=== PATIENT | female | born 1990 | race Caucasian/White ===

== ENCOUNTER → 2017-12-16 | Outpatient (CLI) | payer MEDICAID ==
--- NOTE | 2017-12-16 17:14 | RADIOLOGY REPORT (SQ) ---
EXAM DESCRIPTION: U/S OB 14+ TRNABD 1GES W/O DOP COMPLETED DATE/TIME: 12/16/2017 5:04 pm REASON FOR STUDY: Z34.82 ENCOUNTER FOR SUPRVSN OF NORMAL , SECOND TRIMESTER Z34.82 ENCOUNT ER FOR SUPRVSN OF NORMAL , SECOND TRI COMPARISON: None. TECHNIQUE: Static and Dynamic grayscale imaging performed of gravid uterus using transabdominal appr oach. Additional selected color Doppler and spectral images recorded. All stored on PACS. LIMITATIONS: Limited visualization of the anatomy due to early age and movement. FINDINGS: EGA: 14 week 6 day. JR: 06/10/2018. LONNY: Adequate amount. PLACENTA: Fundal. GRADE: I PRESENTATION: Variable. ANATOMY: HEART RATE: 155 beats per minute. FOUR CHAMBER HEART: Poorly visualized. THREE VESSEL CORD: Poorly visualized. CORD INSERTION: Poorly visualized. KIDNEYS AND BLADDER: Poorly visualized. STOMACH: Visualized. Appears normal. SPINE: Poorly visualized. BRAIN AND LATERAL VENTRICLES: Poorly visualized. OTHER: No other significant finding. MATERNAL ADNEXA: Maternal ovaries not visualized. CERVICAL LENGTH: 4.1 cm. Closed. OTHER: No other significant finding. IMPRESSION: LIVING INTRAUTERINE . ESTIMATED GESTATIONAL AGE 14 WEEK 6 DAY. LIMITED VISUALIZATION OF THE ANATOMY DUE TO THE EARLY AGE AND MOVEMENT. Trimester of : Second trimester - 13 weeks 1 day to 27 weeks 6 days. TECHNICAL DOCUMENTATION: JOB ID: [id number] [employer]- All Rights Reserved
== END ==
LOC: RAD 16:12
PROVIDERS: ATTEND Nurse Practitioner Women's Health
DX: Z34.82 Encounter for supervision of other normal pregnancy, second trimester (principal)
CPT/HCPCS: 76805

== ENCOUNTER 2018-05-21 15:22 | Inpatient (IN) | payer MEDICAID ==
[2018-05-21 16:36] LABS: AMORPHOUS SEDIMENT,URINE TRACE /HPF; APPEARANCE,URINE SLIGHTLY-CLOUDY; BILIRUBIN,URINE NEGATIVE (NEGATIVE); COLOR,URINE YELLOW; GLUCOSE, URINE NEGATIVE (NEGATIVE); KETONES,URINE NEGATIVE (NEGATIVE); LEUKOCYTE ESTERASE,URINE LARGE (NEGATIVE); NITRITE,URINE NEGATIVE (NEGATIVE); PROTEIN,URINE NEGATIVE (NEGATIVE); URINE SPECIFIC GRAVITY 1.004; UROBILINOGEN,URINE NEGATIVE mg/dL (<2.0)
[2018-05-21] MEDS ORDERED: RINGERS SOLUTION,LACTATED 1,000 ML IV ONE (16:39)
[2018-05-21] MEDS ORDERED: PENICILLIN G POTASSIUM 5,000,000 UNIT in DEXTROSE 5%-WATER 100 ML IV ONE (16:39)
[2018-05-21] MEDS ORDERED: RINGERS SOLUTION,LACTATED 1,000 ML IV PRN (16:39)
[2018-05-21 16:56] LABS: URINE AMPHETAMINES SCREEN NEGATIVE; URINE BARBITURATES SCREEN NEGATIVE; URINE BENZODIAZEPINES SCREEN NEGATIVE; URINE COCAINE SCREEN NEGATIVE; URINE METHADONE SCREEN NEGATIVE; URINE PHENCYCLIDINE SCREEN NEGATIVE
[2018-05-21 17:05] LABS: URINE MARIJUANA (THC) SCREEN UNCONFIRMED POSITIVE
[2018-05-21] MEDS ORDERED: NORMAL SALINE 250 ML IV PRN (17:32)
[2018-05-21] MEDS ORDERED: PENICILLIN G-K 5 MILLION UNIT VIAL ONE (17:51)
[2018-05-21 18:10] LABS: ABSOLUTE BASOPHILS # (AUTO) 0.2 10^3/uL (0.0-0.2); ABSOLUTE EOSINOPHILS # (AUTO) 0.1 10^3/uL (0.0-0.6); ABSOLUTE LYMPHOCYTES (AUTO) 3.3 10^3/uL (0.5-4.7); ABSOLUTE MONOCYTES (AUTO) 0.9 10^3/uL (0.1-1.4); ABSOLUTE NEUT (AUTO) 11.6 10^3/uL (1.7-8.2); BASOPHILS % (AUTO) 1.3 % (0-2); EOSINOPHILS % (AUTO) 0.7 % (0-6); HEMATOCRIT 35.2 % (36.0-47.0); LYMPHOCYTES % (AUTO) 20.3 % (13-45); MEAN CORPUSCULAR HEMOGLOBIN 28.3 pg (27.0-33.4); MEAN CORPUSCULAR VOLUME 83 fl (80-97); MONOCYTES % (AUTO) 5.8 % (3-13); PLATELET COUNT 294 10^3/uL (150-450); RED BLOOD COUNT 4.23 10^6/uL (3.72-5.28); RED CELL DISTRIBUTION WIDTH 13.8 % (11.5-14.0); SEGMENTED NEUTROPHILS % (AUTO) 71.9 % (42-78); TOTAL CELLS COUNTED % (AUTO) 100 %; WHITE BLOOD COUNT 16.2 10^3/uL (4.0-10.5)
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
--- NOTE | 2018-05-21 20:38 | L&D Progress Notes ---
PROGRESS NOTES Datetime Report Generated by HERBERTH: 05/21/2018 20:38 PROGRESS NOTE Impression: Reassuring Heart Rate Plan: Continue Present Management Informed Consent Obtained: Vaginal Delivery; Risks, Benefits and Alternatives Discussed Informed Consent Obtained: Vaginal Delivery; Vaginal After ; Risks, Benefits and Alternatives Discussed Informed Consent Obtained- Other: Against Medical Advice Comment: Patient is now desiring to Leave AMA and labor at home and then her plan is to go to [facility] since they let her try to TOLAC there the last time. She was counseled on the risk of laboring at home with TOLAC - uterine rupture may initially go unnoticed and uterine rupture outside of the hospital carries an almost 100% chance of as well as a 50% maternal mortality (). She was counseled that laboring at home is absolutely NOT recommended. She is aware of risk of Maternal/ , uterine rupture, abruption, hysterectomy, multiple unit transfusion/DIC/Intubation/ICU admission, if baby survives after uterine rupture then risk of neurodevelopmental delay/mental retardation/cerebal palsy. JAMES and TiffanyK - were RN in room to witness patient refusal of continued care including section and refusal to stay in hospital. She is signing AMA form for desire to leave against medical advice in early labor and needing a repeat section. VAGINAL EXAM Dilatation: 4 Effacement: 90 Station: -1 Contractions: q 3 MEMBRANES Membranes: Intact Membranes: Intact Amniotic Fluid Color: Clear FETUS A FHR - Baseline: 125 Monitoring: External US Variability: Moderate 6-25bpm Accelerations: 15X15 Decelerations: None FHR Category: Category I Presentation: Vertex SIGNATURE SIGNATURE: [id number] SIGNATURE: [id number] Signature: with User ID: [email or web address]
--- NOTE | 2018-05-21 20:55 | PDOC DISCHARGE SUMMARY ---
General - Admit/Disc Date/PCP Admission Date/Primary Care Provider: 05/21/18 17:47 RUBEN VILA MD Discharge Date: 05/21/18 - Discharge Diagnosis (1) Active labor at term Is this a current diagnosis for this admission?: Yes Summary: patient admitted in early labor with h/o prior to sections and refuses repeat section. Please see H&P and progress note. She is now leaving AMA to labor at home despite recommendations to not do so. (2) H/O section complicating Is this a current diagnosis for this admission?: Yes Summary: patient admitted in early labor with h/o prior to sections and refuses repeat section - Additional Information Resuscitation Status: Full Code Discharge Diet: As Tolerated Discharge Activity: Bedrest Home Medications: No Home Medications 1 12/08/11 Cyclobenzaprine HCl [Flexeril 10 Mg Tablet] 10 mg PO TID #30 tablet 05/21/13 Ibuprofen [Motrin 800 mg Tablet] 800 mg PO TID #30 tablet 05/21/13 Ibuprofen [Motrin 800 Mg Tablet] 800 mg PO TID PRN #30 tablet 05/09/14 Methocarbamol [Robaxin 500 Mg Tablet] 500 mg PO QID PRN #60 tablet 05/09/14 Tramadol HCl [Ultram 50 mg Tablet] 50 mg PO ASDIR PRN #20 tablet 05/09/14 History of Present Illness Patient complains of: uterine contractions History of Present Illness: DOROTHY MARTIN is a 27 year old female at 37+3ega presented for regular uterine ctx and noted to have cvx 2cm and then within 1 hour 3-4cm/90/-1 then 2 hours later 3/100/0 station. She has a history of 2 prior c/s in 2009 and then failed TOLAC with arrest of dilation at 4cm 06/01/2017. Patient is not a candidate for TOLAC due to history of 2 prior sections. She would not be a candidate for TOLAC even if she had only once since it was less than a year ago. She persists in her refusal of section. Hospital Course Hospital Course: 27 year old female at 37+3ega presented for regular uterine ctx and noted to have cvx 2cm and then within 1 hour 3-4cm/90/-1 then 2 hours later 3/ 100/0 station. She was counseled and recommended to have repeat C/S. She refused despite counseling regarding the risks. Everyone was notified as per H& P. Pt now feels that she is not making progress and desires to leave AMA. Pt extensively counseled against this as well and patient was counseled about the significant risk of unmonitored TOLAC. 2 nurses were in the room as well to witness patient refusal of care. RN press hand supervisor will be notified again. Physical Exam - Physical Exam Vital Signs: Intake & Output 05/20/18 05/21/18 05/22/18 06:59 06:59 06:59 Weight 80.1 kg General appearance: PRESENT: no acute distress, well-developed, well-nourished Head exam: PRESENT: atraumatic, normocephalic Respiratory exam: PRESENT: clear to auscultation divya, symmetrical. ABSENT: tachypnea GI/Abdominal exam: PRESENT: normal bowel sounds, soft. ABSENT: distended, guarding, mass, organolmegaly, rebound, tenderness Rectal exam: PRESENT: deferred Extremities exam: PRESENT: full ROM. ABSENT: calf tenderness, clubbing, pedal edema Neurological exam: PRESENT: alert, awake, oriented to person, oriented to place , oriented to time, oriented to situation, CN II-XII grossly intact. ABSENT: motor sensory deficit Psychiatric exam: PRESENT: appropriate affect, normal mood. ABSENT: homicidal ideation, suicidal ideation Skin exam: PRESENT: dry, intact, warm. ABSENT: cyanosis, rash Result Laboratory Results: 05/21/18 17:55 05/21/18 05/21/18 05/21/18 15:39 17:55 17:55 WBC 16.2 H RBC 4.23 Hgb 12.0 Hct 35.2 L MCV 83 MCH 28.3 MCHC 34.0 RDW 13.8 Plt Count 294 Seg Neutrophils % 71.9 Lymphocytes % 20.3 Monocytes % 5.8 Eosinophils % 0.7 Basophils % 1.3 Absolute Neutrophils 11.6 H Absolute Lymphocytes 3.3 Absolute Monocytes 0.9 Absolute Eosinophils 0.1 Absolute Basophils 0.2 Urine Color YELLOW Urine Appearance SLIGHTLY-CLOUDY Urine pH 7.0 Ur Specific [place] 1.004 Urine Protein NEGATIVE Urine Glucose (UA) NEGATIVE Urine Ketones NEGATIVE Urine Blood SMALL H Urine Nitrite NEGATIVE Ur Leukocyte Esterase LARGE H Urine WBC (Auto) 39 Urine RBC (Auto) 5 Blood Type A POSITIVE Antibody Screen NEGATIVE Plan Discharge Plan: Pt leaving AMA Time Spent: Greater than 30 Minutes
== END 2018-05-21 20:55 | disposition left against medical advice (07) | DRG 781 ==
LOC: LC 15:22 → LR 17:47
PROVIDERS: ADMIT Student in an Organized Health Care Education/Training Program; ATTEND Student in an Organized Health Care Education/Training Program
DX: O34.211 Maternal care for low transverse scar from previous cesarean delivery (principal); O99.323 Drug use complicating pregnancy, third trimester; N85.8 Other specified noninflammatory disorders of uterus; O99.333 Smoking (tobacco) complicating pregnancy, third trimester; F17.210 Nicotine dependence, cigarettes, uncomplicated; F12.90 Cannabis use, unspecified, uncomplicated; Z3A.37 37 weeks gestation of pregnancy; Z53.29 Procedure and treatment not carried out because of patient's decision for other reasons
CPT/HCPCS: 36415; 59025; 80307; 81001; 85025; 86592; 86850; 86900; 86901; 86920; 87081; J2540

== ENCOUNTER 2018-05-22 00:07 | Inpatient (IN) | payer MEDICAID ==
[2018-05-22] MEDS ORDERED: CITRIC ACID/SODIUM CITRATE ORAL SOLN 15 ML UDCUP ONE (00:22)
[2018-05-22] MEDS ORDERED: CEFAZOLIN 1 GM/D5W RTU 2 GM/100 ML RTUPB IV ONE (00:22)
[2018-05-22] MEDS ORDERED: RINGERS SOLUTION,LACTATED 1,000 ML IV ONE (00:25)
[2018-05-22] MEDS ORDERED: RINGERS SOLUTION,LACTATED 1,000 ML IV PRN (00:25)
[2018-05-22] MEDS ORDERED: CEFAZOLIN 2 GM/D5W RTU 2 GM/50 ML RTUPB IV ONE (00:25)
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
[2018-05-22] MEDS ORDERED: BUPIVACAINE HCL/DEX-WATER/PF 15 MG/2 ML AMPULE ONE (00:55)
[2018-05-22 01:05] LABS: HEMATOCRIT 35.4 % (36.0-47.0); HEMOGLOBIN 12.1 g/dL (12.0-15.5); MEAN CORPUSCULAR HEMOGLOBIN 28.3 pg (27.0-33.4); MEAN CORPUSCULAR HGB CONC 34.1 g/dL (32.0-36.0); MEAN CORPUSCULAR VOLUME 83 fl (80-97); PLATELET COUNT 288 10^3/uL (150-450); RED BLOOD COUNT 4.26 10^6/uL (3.72-5.28); RED CELL DISTRIBUTION WIDTH 13.8 % (11.5-14.0); WHITE BLOOD COUNT 18.1 10^3/uL (4.0-10.5)
[2018-05-22] MEDS ORDERED: PROMETHAZINE HCL INJ 25 MG/1 ML VIAL IV PRN ×3 (01:24→02:12)
[2018-05-22] MEDS ORDERED: MORPHINE SULFATE 10 MG/ML INJ IV PRN (01:24)
[2018-05-22] MEDS ORDERED: MEPERIDINE HCL/PF INJ 25 MG/1 ML DISP.SYRIN IV PRN (01:24)
[2018-05-22] MEDS ORDERED: DIPHENHYDRAMINE HCL 50 MG/ML VIAL IV PRN (01:24)
[2018-05-22] MEDS ORDERED: FENTANYL CITRATE INJ/PF 100 MCG/2 ML AMPUL IV PRN ×3 (01:24)
[2018-05-22] MEDS ORDERED: PROMETHAZINE HCL INJ 25 MG/1 ML VIAL ONE (01:44)
[2018-05-22] MEDS ORDERED: SIMETHICONE 80 MG TAB.CHEW PO PRN (02:12)
[2018-05-22] MEDS ORDERED: OXYTOCIN/NORMAL SALINE 20 UNIT/1,000 ML RTUINJ IV PRN (02:12)
[2018-05-22] MEDS ORDERED: OXYCODONE-ACETAMINOPHEN 5-325 MG TABLET PO PRN ×2 (02:12)
[2018-05-22] MEDS ORDERED: DIPH/PERTUSS(ACELL)/TETANUS VAC/PF 0.5 ML SYR (>=10YO) IM PRN (02:12)
[2018-05-22] MEDS ORDERED: MEASLES,MUMPS&RUBELLA VACC/PF 0.5 ML VIAL SUBCUT PRN (02:12)
[2018-05-22] MEDS ORDERED: ACETAMINOPHEN 100 MG/10 ML RTUPB IV PRN (02:12)
[2018-05-22] MEDS ORDERED: HYDROMORPHONE HCL INJ/PF 2 MG/ML AMPULE IV PRN (02:12)
[2018-05-22] MEDS ORDERED: ACETAMINOPHEN 325 MG TABLET PO PRN (02:12)
[2018-05-22] MEDS ORDERED: KETOROLAC TROMETHAMINE INJ/PF 30 MG/1 ML SDV IV SCH (02:15)
--- NOTE | 2018-05-22 02:24 | Operative Report ---
Operative Report DATE OF SURGERY: 05/22/18 PREOPERATIVE DIAGNOSIS: H/o section x 2, , 37+4ega, Self mutilating behavior, Active labor, non complaince with medical recommendations POSTOPERATIVE DIAGNOSIS: DEVYN - delivered, True knot in cord, Triple right leg cord OPERATION: Repeat Section SURGEON: RUBEN VILA ANESTHESIA: Spinal TISSUE REMOVED OR ALTERED: placenta and cord sent to pathology COMPLICATIONS: None ESTIMATED BLOOD LOSS: 954ml INTRAOPERATIVE FINDINGS: normal bilateral tubes and ovaries, normal uterus except for extensive adhesions from anterior uterine body to anterior abdominal wall and adhesions of bladder to anterior abdominal wall and uterine scar. very thin lower uterine segment entered with hemostat. Infant with triple leg cord and then also note true knot in cord. VFI delivered at 0129. Apgars 8/9. weight 5#7oz. IVF 1400ml, UOP 50ml PROCEDURE: Anesthesia provider: [Ruth Sawant MD, Jessica Gale CRNA] Urine output: [50ml] IV fluids: [1400ml] Indications: [27yo at 37+4ega presented in labor and section was recommended on 05/21 then patient left AMA. She returned on 05/22 again in labor and Repeat C/S was recommended. She at this time agreed to proceed. The Risks/benefits/alternatives were discussed and she desired to proceed with Repeat C/S. See H&P and other notes. ] Procedure: The patient was taken to the operating room where spinal anesthesia was obtained and found to be adequate. She was then prepped and draped in the normal sterile fashion and placed in the dorsal supine position with a leftward tilt. A Pfannenstiel skin incision was then made and carried through to the underlying layers of the fascia with the scalpel. The fascia was incised in the midline and the incision extended laterally with the Cabrera scissors. The superior aspect of the fascial incision was then grasped with Ronan clamps elevated and the underlying rectus muscles dissected off [sharply]. Attention was then turned to the inferior aspect of the fascial incision which in a similar fashion was grasped, tented up with Ronan clamps, and the rectus muscles dissected off [sharply]. The rectus muscles were then in the midline and the peritoneum at the amount identified and entered [sharply]. The peritoneal incision was then extended superiorly and inferiorly with good visualization of the bladder after careful dissection of adhesions of anterior uterine body to anterior abdominal wall. The bladder blade was inserted and the vesicouterine peritoneum identified grasped with Nepalese pickups and entered sharply with the Metzenbaum scissors and additional adhesions of bladder to anterior abdominal wall and lower uterine segment were taken down sharply. This incision was then extended laterally with the Metzenbaum scissors and a bladder flap created digitally. The bladder blade was then reinserted and the lower uterine segment kicked in a transverse fashion with the scalpel then entered with hemostat since it was very thin. The uterine incision was then extended bluntly. The bladder blade was removed and the infant's head was delivered from cephalic presentation atraumatically. The nose and mouth were suctioned and the cord doubly clamped and cut. And the was handed off to waiting pediatricians. The placenta was then delivered spontaneously and the uterus exteriorized and cleared of all clots and debris. The uterine incision was then repaired with 1- 0 Vicryl in a running locked fashion. A second layer of the same suture was used to obtain hemostasis via imbrication of the initial layer. The bladder flap was then repaired with 3-0 chromic in a running fashion. The uterus was returned to the patient's abdomen and Interceed was placed overlying the uterine incision to prevent adhesions. The gutters were cleared of all clots and debris. All operative sites were noted to be hemostatic. The fascia was reapproximated with 0 Vicryl in a running fashion from each lateral edge to the midline. The skin was closed with 3-0 Monocryl in a running subcuticular fashion with overlying Dermabond for additional dressing as well as wound closure. The patient tolerated the procedure well. Sponge lap needle and instrument counts are correct times 2. 2 g of Ancef were given prior to skin incision. The patient was taken to the recovery area awake and in stable condition.
--- NOTE | 2018-05-22 02:24 | Brief Operative Note ---
BRIEF OPERATIVE REPORT DATE OF SURGERY: 05/22/18 TIME OF SURGERY: 01:30 PREOPERATIVE DIAGNOSIS: H/o section x 2, , 37+4ega, Self mutilating behavior, Active labor, non complaince with medical recommendations POSTOPERATIVE DIAGNOSIS: DEVYN - delivered, True knot in cord, Triple right leg cord SURGEON: RUBEN VILA FINDINGS: normal bilateral tubes and ovaries, normal uterus except for extensive adhesions from anterior uterine body to anterior abdominal wall and adhesions of bladder to anterior abdominal wall and uterine scar. very thin lower uterine segment entered with hemostat. with triple leg cord and then also note true knot in cord. VFI delivered at 0129. Apgars 8/9. weight 5 #7oz. IVF 1400ml, UOP 50ml COMPLICATIONS: None ESTIMATED BLOOD LOSS: 954ml TISSUE REMOVED OR ALTERED: placenta and cord sent to pathology TECHNICAL PROCEDURE: Repeat Section
[2018-05-22] MEDS ORDERED: OXYTOCIN/NORMAL SALINE 20 UNIT/1,000 ML RTUINJ ONE (03:00)
[2018-05-22] MEDS ORDERED: KETOROLAC TROMETHAMINE INJ/PF 30 MG/1 ML SDV ONE (03:27)
[2018-05-22] MEDS ORDERED: ONDANSETRON HCL INJ/PF 4 MG/2 ML SDV IV PRN (07:08)
[2018-05-22] MEDS: PRENATAL VITAMIN W DHA CAPSULE PO SCH (09:30)
[2018-05-22] MEDS ORDERED: DOCUSATE SODIUM 100 MG CAPSULE PO SCH (10:00)
[2018-05-22] MEDS: KETOROLAC TROMETHAMINE INJ/PF 30 MG/1 ML SDV IV SCH ×2 (11:42→19:43)
[2018-05-22] MEDS: ACETAMINOPHEN WITH CODEINE #3 TABLET PO PRN ×3 (13:12→22:05)
--- NOTE | 2018-05-22 14:12 | Delivery Summary ---
Del Sum A-C Datetime Report Generated by CPN: 05/22/2018 14:11 DELIVERY PERSONNEL DELIVERY PERSONNEL: [id number] Delivery Doctor:: Emilie Morales MD Anesthesiologist:: Deedee Mukherjee MD DENTAL SALES REPRESENTATIVE:: Lauren Gale DENTAL SALES REPRESENTATIVE Labor and Delivery Nurse:: Jenna Velázquez RN Sports Medicine Specialist:: Jenna Velázquez RN Neonatal Nurse Practitioner:: MALICK Aguilera Nursery Nurse:: Mariana Ritter RN Nursery Nurse:: Julius Fonseca RN Systems Consultant/PLACEMENT MANAGER: [employer] Consultant/PLACEMENT MANAGER: Genesis Paganr, [employer] MATERNAL INFORMATION Delivery Anesthesia: Spinal Medications After Delivery: Pitocin Bolus-Please Comment; Pitocin Drip 20 Units/1000ml NSS Meds After Delivery Comment: NS with Pitocin 20 units/liter IVF bolus per protocol x2 liters Maternal Complications: None LABOR SUMMARY EDC: 06/08/2018 00:00 No. Babies in Womb: 1 Attempted: No Labor Anesthesia: None LABOR INFORMATION Reason for Induction: Not Applicable Onset of Labor: 05/21/2018 00:00 Oxytocin: N/A Group B Beta Strep: unknown Antibiotics # of Doses: 1 Antibiotics Time of Last Dose: 1824 Name of Antibiotic Given: PCN 5 million units IV Steroids Given: None Reason Steroids Not Administered: Not Applicable MEMBRANES Membranes Rupture Method: Artificial Rupture of Membranes: 05/22/2018 01:29 Length of Rupture (hr): 0.00 Amniotic Fluid Color: Clear Amniotic Fluid Amount: Moderate Amniotic Fluid Odor: Normal STAGES OF LABOR Stage 3 hr: 0 Stage 3 min: 1 Total Time in Labor hr: 25 Total Time in Labor min: 30 VAGINAL DELIVERY Episiotomy: None Laceration #1: None Laceration Extension #1: N/A Sponge Count Correct: N/A Sharps Count Correct: N/A CSECTION DELIVERY Primary Indication: > 2 Previous C-Sections CSection Urgency: Non-Scheduled CSection Incidence: Repeat Labor: Labor Elective: Nonelective CSection Incision: Lower Uterine Transverse BABY A INFORMATION Delivery Date/Time: 05/22/2018 01:29 Method of Delivery: Born in Route : No : N/A Forceps: N/A Vacuum Extraction: N/A Shoulder Dystocia : No PRESENTATION/POSITION BABY A Presentation: Cephalic Cephalic Presentation: Vertex Vertex Position: Left Occipital Anterior Breech Presentation: N/A PLACENTA INFORMATION BABY A Placenta Delivery Time : 05/22/2018 01:30 Placenta Method of Delivery: Manual Removal Placenta Status: Delivered SCORES BABY A Heart Rate 1 min: >100 bpm Resp Effort 1 min: Good Cry Reflex Irritability 1 min: Cough or Sneeze or Pulls Away Muscle Tone 1 min: Active Motion Color 1 min: Blue/Pale SCORE 1 MIN: 8 Heart Rate 5 min: >100 bpm Resp Effort 5 min: Good Cry Reflex Irritability 5 min: Cough or Sneeze or Pulls Away Muscle Tone 5 min: Active Motion Color 5 min: Body [facility], Extremities Blue SCORE 5 MIN: 9 INFORMATION BABY A Gestational Age at Delivery: 37.4 Gestational Status: Early Term- 37- 38.6 Weeks Infant Outcome : Liveborn Infant Condition : Stable Sex: Female WEIGHT/LENGTH BABY A Infant Birthweight (gm): 2470 Infant Weight (lb): 5 Infant Weight (oz): 7 Infant Length (in): 18.00 Length (cm): 45.72 CORD INFORMATION BABY A No. Cord Vessels: 3 Nuchal Cord : nuchal cord x 3 around leg True Knot: 1 Cord Blood Taken: Yes-For Storage (Mom's Blood type +) Suction: Mouth; Nose ASSESSMENT BABY A Infant Complications: None Physical Findings at Delivery: Within Normal Limits Respirations: Grunting Skin to Skin: No Mold Stripper/ALS Called : No Care By: HUGO Ritter and HUGO Fonseca Transferred To: [facility] BABY B INFORMATION : N/A
[2018-05-23] MEDS: IBUPROFEN 800 MG TABLET PO SCH ×3 (00:14→12:20)
[2018-05-23] MEDS: ACETAMINOPHEN WITH CODEINE #3 TABLET PO PRN ×3 (01:55→15:08)
[2018-05-23 06:18] LABS: HEMATOCRIT 32.2 % (36.0-47.0); HEMOGLOBIN 10.9 g/dL (12.0-15.5); MEAN CORPUSCULAR HEMOGLOBIN 28.5 pg (27.0-33.4); MEAN CORPUSCULAR HGB CONC 33.9 g/dL (32.0-36.0); MEAN CORPUSCULAR VOLUME 84 fl (80-97); PLATELET COUNT 263 10^3/uL (150-450); RED BLOOD COUNT 3.83 10^6/uL (3.72-5.28); RED CELL DISTRIBUTION WIDTH 14.1 % (11.5-14.0); WHITE BLOOD COUNT 13.9 10^3/uL (4.0-10.5)
--- NOTE | 2018-05-23 08:24 | PDOC PROGRESS REPORT ---
Subjective-OB Progress Note for:: 05/23/18 Subjective: Doing well, sleeping in room, still having pain, better with meds, eating, voiding, ambulating Physical Exam (OB) Vital Signs: Temp Pulse Resp BP Pulse Ox 97.5 F 72 20 117/70 100 05/23/18 04:10 05/23/18 04:10 05/23/18 04:10 05/23/18 04:10 05/23/18 04:10 Intake & Output 05/22/18 05/23/18 05/24/18 06:59 06:59 06:59 Intake Total 120 2325 Output Total 1240 Balance 120 1085 Weight 76.8 kg - PIH/Pre-Eclampsia DTR's: 1 + Clonus: Negative Headache: Absent Epigastric Pain: No Visual Changes: No - Dressing Removed: No Incision: Dressing, Well Approximated Closure Type: Surgical Glue - Lochia Lochia Amount: Scant < 10 ml Lochia Color: Rubra/Red - Abdomen Description: Tender, Firm, Round Hernia Present: No Fundal Description: Firm Fundal Height: u/3 - u/4 Objective-Diagnostic Laboratory: 05/23/18 05:59 05/23/18 05:59 WBC 13.9 H RBC 3.83 Hgb 10.9 L Hct 32.2 L MCV 84 MCH 28.5 MCHC 33.9 RDW 14.1 H Plt Count 263 Assessment and Plan(PN) - Assessment and Plan (1) Self-mutilation Is this a current diagnosis for this admission?: Yes (2) Non compliance with medical treatment Is this a current diagnosis for this admission?: Yes (3) Limited care Qualifiers: Trimester: unspecified trimester Qualified Code(s): O09.30 - Supervision of with insufficient care, unspecified trimester Is this a current diagnosis for this admission?: Yes (4) Active labor at term Is this a current diagnosis for this admission?: Yes (5) H/O section complicating Is this a current diagnosis for this admission?: Yes - Time Spent with Patient Time with patient: Less than 15 minutes Medications reviewed and adjusted accordingly: Yes - Disposition Anticipated Discharge: Home Within: within 24 hours
[2018-05-23] MEDS: PRENATAL VITAMIN W DHA CAPSULE PO SCH (09:08)
--- NOTE | 2018-05-23 16:51 | PDOC DISCHARGE SUMMARY ---
Final Diagnosis Discharge Date: 05/23/18 Discharge Data - Discharge Medication Prescriptions: Acetaminophen with Codeine [Tylenol #3 Tablet] 1 each PO Q4HP PRN #30 tablet PRN Reason: Ibuprofen [Motrin 800 mg Tablet] 800 mg PO Q6 #90 tablet Home Medications: Ibuprofen [Motrin 800 mg Tablet] 800 mg PO TID #30 tablet 05/21/13 Ibuprofen [Motrin 800 Mg Tablet] 800 mg PO TID PRN #30 tablet 05/09/14 Acetaminophen with Codeine [Tylenol #3 Tablet] 1 each PO Q4HP PRN #30 tablet 08/31 Ibuprofen [Motrin 800 mg Tablet] 800 mg PO Q6 #90 tablet 05/23/18 Reason(s) for Admission: Ceasarean Section-Repeat Intrapartum Procedure(s): : Low Cervical, Transverse - Diagnosis Test Laboratory: Temp Pulse Resp BP Pulse Ox 98.2 F 79 15 122/68 98 05/23/18 11:33 05/23/18 11:33 05/23/18 11:33 05/23/18 11:33 05/23/18 11:33 05/22/18 05/23/18 00:51 05:59 RBC 4.26 3.83 Hgb 12.1 10.9 L Hct 35.4 L 32.2 L - Discharge information/Instructions Discharge Activity: Balance Activity w/Rest, No Driving, No Lifting/Push/Pulling , Pelvic Rest, Slowly Increase Activity, No tub bath, Walk Frequently Discharge Diet: Regular Disposition: HOME, SELF-CARE Follow up with: [facility] in: 1
[2018-05-23 16:57] VITALS: BP 111/69
== END 2018-05-23 18:31 | disposition home or self-care (01) | DRG 766 ==
LOC: LC 00:07 → LR 00:21 → 2S 04:29
PROVIDERS: ADMIT Student in an Organized Health Care Education/Training Program; ATTEND Student in an Organized Health Care Education/Training Program
PROC: 10D00Z1 Extraction of Products of Conception, Low, Open Approach (ICD-10-PCS; principal; 2018-05-22)
DX: O69.2XX0 Labor and delivery complicated by other cord entanglement, with compression, not applicable or unspecified (principal); O34.219 Maternal care for unspecified type scar from previous cesarean delivery; Z37.0 Single live birth; Z3A.37 37 weeks gestation of pregnancy; Z91.5 Personal history of self-harm; Z91.19 Patient's noncompliance with other medical treatment and regimen
CPT/HCPCS: 1961; 36415; 80307; 83036; 85027; 86850; 86900; 86901; 88307; 94799; C1765; G0480; J0690; J1170; J1885; J2550; J2590; J3490; J7120